=== PATIENT | female | born 1955 | race Caucasian/White ===

== ENCOUNTER 2021-09-10 05:52 | Day surgery (SDC) | payer OTHER ==
[~2021-09-10 05:52] MED LIST: Sodium Chloride 0.9% 10 ML Syringe FLUSH SCH
[2021-09-10] MEDS ORDERED: Midazolam 1 MG/ML 2 ML SDV IV ONE (05:53)
[2021-09-10] MEDS ORDERED: fentaNYL 100 MCG/2 ML SDV IV ONE (05:53)
[2021-09-10] MEDS ORDERED: Sodium Chloride 0.9% 10 ML Syringe FLUSH PRN (06:00)
[2021-09-10] MEDS ORDERED: Midazolam 1 MG/ML 2 ML SDV ONE (06:11)
[2021-09-10] MEDS ORDERED: fentaNYL 100 MCG/2 ML SDV ONE (06:11)
[2021-09-10] MEDS: Dextrose 5%-0.45% NaCl 1,000 ML IV SCH (06:30)
[2021-09-10] MEDS: fentaNYL 100 MCG/2 ML SDV IV ONE ×2 (07:01→07:02)
[2021-09-10] MEDS: Midazolam 1 MG/ML 2 ML SDV IV ONE ×5 (07:02→07:12)
[2021-09-10 09:44] VITALS: BP 130/84; PULSE 65
== END 2021-09-10 09:40 | disposition home or self-care (01) ==
LOC: DL.ENDO 05:52
PROVIDERS: ATTEND Internal Medicine Gastroenterology
DX: Z12.11 Encounter for screening for malignant neoplasm of colon (principal); K57.30 Diverticulosis of large intestine without perforation or abscess without bleeding; K64.4 Residual hemorrhoidal skin tags; E66.09 Other obesity due to excess calories; I10 Essential (primary) hypertension; Z98.890 Other specified postprocedural states; Z68.28 Body mass index [BMI] 28.0-28.9, adult
CPT/HCPCS: J2250; J3010; J7042